=== PATIENT | female | born 1945 | race Two or more races ===

== ENCOUNTER 2021-01-04 11:38 | Emergency (ER) | payer MEDICAID, MEDICARE ==
[~2021-01-04] VITALS: Ht 154.9 cm; Wt 57.7 kg
[2021-01-04] MEDS ORDERED: MECL-101 PO (11:55)
[2021-01-04] MEDS ORDERED: FLUO20CA23 PO (11:55)
[2021-01-04] MEDS ORDERED: CYCL5TAB PO (11:56)
--- NOTE | 2021-01-04 12:03 | NUR ---
PT C/O RIGHT NECK AND SHOULDER PAIN. PT STATES IT HAS BEEN 3 DAYS. PAIN STARTED WHEN PATIET WAS DOING HER HAIR. PT ALSO STATING SHE HAS HAD BOUTS OF CHILLS. PT DENIES N/V, SOB, OR HEADACHE.
[2021-01-04 12:39] LABS: BASOPHILS % (AUTO) 0 % (0-1); EOSINOPHILS % (AUTO) 1 % (1-7); LYMPHOCYTES % (AUTO) 35 % (22-44); MEAN CORPUSCULAR HEMOGLOBIN 30.6 pg (27.0-34.8); MEAN CORPUSCULAR HGB CONC 34.4 g/dL (32.4-35.8); MEAN PLATELET VOLUME 7.8 fL (7.4-10.4); MONOCYTES % (AUTO) 9 % (2-9); NEUTROPHILS % (AUTO) 55 % (42-75); PLATELET COUNT 286 x10^3/uL (130-400); RED BLOOD COUNT 4.44 x10^6/uL (3.82-5.3)
[2021-01-04 12:46] LABS: ALBUMIN 3.8 g/dL (3.4-5.0); ANION GAP 7 mmol/L (5-15); CALCIUM 8.8 mg/dL (8.5-10.1); CHLORIDE 110 mmol/L (98-107)
[2021-01-04 12:48] LABS: CREATININE 0.91 mg/dL (0.55-1.02)
[2021-01-04 12:56] LABS: MD NO
[2021-01-04 15:15] VITALS: BP 134/80
--- NOTE | 2021-01-04 15:49 | NUR ---
PT REC'VD DISCHARGE INSTRUCTIONS AND EDUCATION. PT HAD NO FURTHER QUESTIONS. PT AMBULATED TO DC AREA, STEADY GAIT.
== END 2021-01-04 13:19 ==
LOC: ED 13:18
DX: M47.22 Other spondylosis with radiculopathy, cervical region (principal)
CPT/HCPCS: 36415; 72125; 80048; 82040; 85025; 93005; 99285

== ENCOUNTER 2021-04-08 19:16 | Emergency (ER) | payer MEDICARE ==
[~2021-04-08] VITALS: Ht 149.9 cm; Wt 59.0 kg
[~2021-04-08 19:16] MED LIST: CYCL5TAB PO; FLUO20CA23 PO; MECL-101 PO
[2021-04-08 19:22] VITALS: BP 143/89
[2021-04-08] MEDS ORDERED: HYDROcodone/APAP 5/325 TABLET ONE (21:35)
[2021-04-08] MEDS ORDERED: HYDROcodone/APAP 5/325 TABLET PO ONE (22:00)
== END 2021-04-08 22:05 | disposition home or self-care (01) ==
LOC: ED 21:38
DX: G89.11 Acute pain due to trauma (principal); M25.561 Pain in right knee; E78.00 Pure hypercholesterolemia, unspecified; X58.XXXA Exposure to other specified factors, initial encounter; Y93.89 Activity, other specified; Y92.009 Unspecified place in unspecified non-institutional (private) residence as the place of occurrence of the external cause; Y99.8 Other external cause status
CPT/HCPCS: 29505; 99283